=== PATIENT | female | born 1980 | race Caucasian/White ===

== ENCOUNTER 2017-04-26 16:17 | Observation (INO) ==
[2017-04-26] MEDS ORDERED: Vancomycin Oral Soln 250 MG/5 ML UDC PO STA (16:58)
--- NOTE | 2017-04-26 17:01 | Emergency Department Note ---
Disposition Clinical Impression: Clostridium difficile infection Disposition: Admitted As Inpatient Condition: Good Referrals: Maureen Isbell CNP [Primary Care Provider] - Forms: ED Satisfaction Letter Time of Disposition: 17:53 Nausea/Vomiting/Diarrhea HPI - General Chief complaint: ED Nausea/Vomiting/Diarrhea Stated complaint: C-diff, unable to fill Rx Time Seen by Provider: 04/26/17 16:37 Source: patient, family Mode of arrival: ambulatory Limitations: no limitations Nursing Notes Reviewed: Yes Vital Signs Reviewed: Yes - History of Present Illness HPI Narrative: 36-year-old with a history of cancer in currently receiving chemotherapy he developed C. difficile was hospitalized until yesterday. Patient was discharged unable to get her medications filled. Her diarrhea is now worsening. Pt Subjective Complaint: diarrhea Onset (ago): day(s) Description of Diarrhea: water Associated Abdominal Pain: Yes (Cramps) Radiation: diffuse Severity: moderate Quality: cramping Improves with: nothing Worsens with: eating Context: other (Documented C. difficile) - Related Data Home Medications Medication Instructions Recorded Confirmed Buspirone HCl [Buspar] 10 mg PO BID 11/14/16 04/23/17 Escitalopram [Lexapro] 20 mg PO DAILY 11/14/16 04/23/17 SUMAtriptan succinate [Imitrex] 25 mg PO Q2H PRN 11/14/16 04/23/17 Ranitidine HCl [Zantac] 150 mg PO BID 03/30/17 04/23/17 LORazepam [Ativan] 1 tab PO Q6H PRN 04/01/17 04/23/17 Ibuprofen [Motrin] 600 mg PO TID PRN 04/23/17 04/23/17 Previous Rx's Medication Instructions Recorded Lidocaine/Prilocaine [Emla] 1 appl TP DAILY #30 gm 03/24/17 Diphenoxylate/Atropine [Lomotil 2 each PO TID PRN 30 Days #60 04/17/17 2.5 mg/0.025 mg] tablet Metoclopramide [Reglan] 10 mg PO TID #90 tablet 04/17/17 Tramadol HCl [Ultram] 1 - 2 tab PO Q6H PRN 15 Days #30 04/22/17 tab L.acidoph,Paracasei, B.lactis 1 each PO DAILY 30 Days #30 capsule 04/25/17 [Probiotic] Vancomycin Oral Soln [Vancocin] 125 mg PO QID 12 Days #47 [facility] [place] 04/25/17 Allergies Allergy/AdvReac Type Severity Reaction Status Date / Time aspirin Allergy Anaphylaxis Verified 04/22/17 21:37 Amoxicillin AdvReac Itching Verified 04/22/17 21:37 metronidazole [From Flagyl] AdvReac Nausea/VOMI Verified 04/22/17 21:37 TING ondansetron AdvReac NAUSEA/VOMI Verified 04/22/17 21:37 [From Zofran (as TING hydrochloride)] Penicillins AdvReac Itching Verified 04/22/17 21:37 All systems ED: reviewed and negative except as stated. Constitutional: Denies: fever, chills, weakness, weight change Eyes: Denies: eye pain, eye discharge, vision change ENT ED: Denies: ear pain, throat pain, dental pain, hearing loss, epistaxis, congestion, dysphagia Cardiovascular: Denies: chest pain, palpitations, dyspnea on exertion, edema, syncope Respiratory: Denies: cough, dyspnea, wheezes, hemoptysis, stridor Gastrointestinal: Denies: abdominal pain, nausea, vomiting, diarrhea, constipation, hematemesis, melena, hematochezia Genitourinary: Denies: dysuria, frequency, hematuria, discharge Musculoskeletal: Denies: back pain, neck pain, arthralgia, myalgia Integumentary: Denies: rash, abrasion, lesions Neurological: Denies: headache, weakness, numbness, paresthesias, confusion, abnormal gait, vertigo Psychiatric: Denies: anxiety, depression, suicidal thoughts, homicidal thoughts , auditory hallucinations, visual hallucinations Endocrine: Denies: fatigue Hematological/Lymphatic: Denies: easy bleeding, easy bruising Allergic/Immunologic: Denies: facial swelling, urticaria Past Medical History - Past Medical History Medical history: Reports: asthma, cancer, migraine, other Surgical history: Reports: other Psychiatric history: Reports: anxiety, depression - Social History Smoking Status: Current some day smoker Smokeless Tobacco Status: No Alcohol use: Reports: none Drug use: Reports: none Physical Exam - General Limitations: no limitations General appearance: alert Course - Reevaluation(s) Reevaluation #1: 36-year-old who is currently being treated for breast cancer and developed a clostridial to seal diarrhea. Patient was discharged yesterday however she is not able to get her medications filled and she has had worsening symptoms since that time. We will run admit her until we get the her vacation straightened out and he of the oral vancomycin. Time: 17:54 - Consultations Consultation #1: Discussed with Omkar Mendiola. admit. Time: 18:24 Vital Signs Temperature 98.8 F 04/26/17 16:28 Pulse Rate 99 04/26/17 16:28 Respiratory Rate 18 04/26/17 16:28 Blood Pressure 128/88 04/26/17 16:28 O2 Sat by Pulse Oximetry 97 04/26/17 16:28 Temperature 98.8 F 04/26/17 16:28 Pulse Rate 99 04/26/17 16:28 Respiratory Rate 18 04/26/17 16:28 Blood Pressure 128/88 04/26/17 16:28 O2 Sat by Pulse Oximetry 97 04/26/17 16:28 Oxygen Delivery Oxygen Delivery Room Air Nausea/Vomiting/Diarrhea - Lab Data Result diagrams: 04/26/17 16:55 04/26/17 16:55 Lab Results 04/26/17 04/26/17 Range/Units 16:55 16:55 WBC 1.7 L (4.3-11.1) K/mcL RBC 3.78 L (3.82-4.97) M/mcL Hgb 11.4 L (11.5-15.4) g/dL Hct 34.2 L (35.3-44.9) % MCV 90.5 (83.0-100.0) fL MCH 30.2 (28.0-33.3) pg MCHC 33.3 (31.6-35.5) g/dL RDW 13.0 (11.5-14.5) % Plt Count 201 (140-400) K/mcL MPV 9.7 (9.4-12.4) fL Seg Neutrophils % 18.0 % Band Neutrophils % 4.0 (0-4) % Lymphocytes % 64.0 % Monocytes % 12.0 % Eosinophils % 2.0 % Neutrophils # 0.4 L (1.6-8.9) K/mcL Lymphocytes # 1.1 (0.6-4.6) K/mcL Monocytes # 0.2 (0.0-1.3) K/mcL Eosinophils # 0.0 (0.0-0.6) K/mcL Platelet Estimate Normal (Normal) Large Platelets Present A (Not Present) Sodium 137 (136-145) mEq/L Potassium 3.4 L (3.5-5.1) mEq/L Chloride 105 (98-107) mEq/L Carbon Dioxide 27 (23-29) mEq/L BUN 7 (6-20) mg/dL Creatinine 0.55 L (0.60-1.20) mg/dL Est GFR ( Amer) > 60 (> 60) Est GFR (Non-Af Amer) > 60 (> 60) BUN/Creatinine Ratio 13 (6-26) Glucose 100 (70-105) mg/dL Calculated Osmolality 282 (280-300) Calcium 9.1 (8.6-10.3) mg/dL
[2017-04-26 17:21] LABS: Hemoglobin 11.4 g/dL (11.5-15.4)
[2017-04-26 17:22] LABS: Hematocrit 34.2 % (35.3-44.9); Mean Corpuscular HGB Conc 33.3 g/dL (31.6-35.5); Mean Corpuscular Hemoglobin 30.2 pg (28.0-33.3); Mean Corpuscular Volume 90.5 fL (83.0-100.0); Mean Platelet Volume 9.7 fL (9.4-12.4); Platelet Count 201 K/mcL (140-400); Red Blood Count 3.78 M/mcL (3.82-4.97)
[2017-04-26 17:43] LABS: BUN/Creatinine Ratio 13 (6-26); Blood Urea Nitrogen 7 mg/dL (6-20); Calcium 9.1 mg/dL (8.6-10.3); Carbon Dioxide 27 mEq/L (23-29); Chloride 105 mEq/L (98-107); Glucose 100 mg/dL (70-105); Osmolality,Calculated 282 (280-300); Potassium 3.4 mEq/L (3.5-5.1); Sodium 137 mEq/L (136-145); eGFR For African Americans > 60 (> 60); eGFR For Non-African Americans > 60 (> 60)
[2017-04-26 17:57] LABS: Lymphocytes # 1.1 K/mcL (0.6-4.6); Monocytes # 0.2 K/mcL (0.0-1.3); Neutrophils # 0.4 K/mcL (1.6-8.9)
[2017-04-26 17:58] LABS: Platelet Estimate Normal (Normal)
[2017-04-26 17:59] LABS: Large Platelets Present (Not Present)
[2017-04-26] MEDS ORDERED: Naloxone 0.4 MG/ML INJ IVP PRN (20:51)
[2017-04-26] MEDS ORDERED: *HR* LORazepam 1 MG TABLET PO PRN (20:57)
[2017-04-26] MEDS ORDERED: Ibuprofen 600 MG TABLET PO PRN (20:57)
[2017-04-26] MEDS ORDERED: SUMAtriptan succinate 25 MG TABLET PO PRN (20:57)
[2017-04-26] MEDS ORDERED: traMADol 50 MG TABLET PO PRN (20:57)
--- NOTE | 2017-04-26 21:07 | Internal Med History&Physical ---
<Herson Craven - Last Filed: 04/26/17 22:34> Date of Encounter: 04/26/17 Time of Encounter: 21:05 Assessment and Plan (1) Clostridium difficile infection Current visit: Yes Status: Acute Patient admitted 04/23/17 and discharged 04/25/17 for c. diff Patient unable to get oral Vanc as an outpatient due to needing prior authorization by her insurance. Missed all doses since leaving hospital. Patient denies blood in stool at this time. Plan: restart oral vanc. patient will need Prior auth completed prior to discharge (2) Hypokalemia Current visit: Yes Status: Acute Patient K only 3.4 at this time, but due to continued diarrhea will replete with 40mg PO continue to monitor. (3) Breast cancer Current visit: Yes Status: Chronic Pt with Hx of Breast Ca currently undergoing chemotherapy. COntinue all home Nausea Medications, pain medications, psych medications Qualifiers: Breast location: central portion of breast Estrogen receptor status: positive Patient sex: female Laterality: right Qualified Code(s): C50.111 - Malignant neoplasm of central portion of right female breast; Z17.0 - Estrogen receptor positive status [ER+]; Z17.0 - Estrogen receptor positive status [ER+] Internal Medicine - H&P: HPI Chief complaint: Diarrhea Admitted From: Emergency Dept Plans for Post Hospital Care: Home History of present illness: Ms. Thrasher is a 36 year old female c PMHx of Breast CA, maigraines, anxiety, depression reports to ED after having been discharged yesterday after treatment for C. Diff c/o continued diarrhea and inability to fill her Rx for oral vancomycin as an outpatient. Patient reports that she was unable to fill her Rx for oral vancomycin because insurance required prior authorization. Patient has had continued diarrhea. Patient denies blood in stool. Patient reports nausea, abdominal tenderness. Patient denies Chest pain, SOB, fevers, chills. Patient is leukopenic secondary to chemotherapy. K 3.4 on lab work in the ED. Past Med Surg Social Fam HX - Past Medical History Medical history: asthma, cancer, migraine, other Psychiatric history: anxiety, depression - Past Surgical History Surgical History: other - Social History Smoking Status: Current some day smoker Smokeless Tobacco Status: No Alcohol use: none Drug use: none Internal Medicine - H&P: Meds Buspirone HCl [Buspar] 10 mg PO BID 11/14/16 [History] Escitalopram [Lexapro] 20 mg PO DAILY 11/14/16 [History] SUMAtriptan succinate [Imitrex] 25 mg PO Q2H PRN 11/14/16 [History] Lidocaine/Prilocaine [Emla] 1 appl TP DAILY #30 gm 03/24/17 [Rx] Ranitidine HCl [Zantac] 150 mg PO BID 03/30/17 [History] LORazepam [Ativan] 1 tab PO Q6H PRN 04/01/17 [History] Diphenoxylate/Atropine [Lomotil 2.5 mg/0.025 mg] 2 each PO TID PRN 30 Days #60 tablet 04/17/17 [Rx] Metoclopramide [Reglan] 10 mg PO TID #90 tablet 04/17/17 [Rx] Tramadol HCl [Ultram] 1 - 2 tab PO Q6H PRN 15 Days #30 tab 04/22/17 [Rx] Ibuprofen [Motrin] 600 mg PO TID PRN 04/23/17 [History] L.acidoph,Paracasei, B.lactis [Probiotic] 1 each PO DAILY 30 Days #30 capsule [Rx] Vancomycin Oral Soln [Vancocin] 125 mg PO QID 12 Days #47 [facility] 04/25/17 [Rx] 3 Allergy/AdvReac Type Severity Reaction Status Date / Time aspirin Allergy Anaphylaxis Verified 04/22/17 21:37 Amoxicillin AdvReac Itching Verified 04/22/17 21:37 metronidazole [From Flagyl] AdvReac Nausea/VOMI Verified 04/22/17 21:37 TING ondansetron AdvReac NAUSEA/VOMI Verified 04/22/17 21:37 [From Zofran (as TING hydrochloride)] Penicillins AdvReac Itching Verified 04/22/17 21:37 All Systems PM: A 14-system review of systems was performed and is negative for pertinent findings except as documented above in the HPI. - Constitutional Vitals: Temp Pulse Resp BP Pulse Ox 98.5 F 95 18 121/79 97 04/26/17 19:54 04/26/17 19:54 04/26/17 19:54 04/26/17 19:54 04/26/17 19:54 General appearance: Present: A&O X 3, no acute distress, answers questions appropriately - Head Head exam: Present: atraumatic, normocephalic - Eye Eye exam: Present: PERRL, conjuntiva pink, sclera anicteric Pupils: Present: PERRL - Neck Neck exam general surgery: Present: supple, trachea midline - Respiratory Respiratory exam: Present: CTAB. Absent: accessory muscle use, rales, rhonchi, wheezes - Cardiovascular Cardiovascular exam: Present: RRR, +S1, +S2. Absent: diastolic murmur, gallop, rubs, systolic murmur - GI/Abdominal GI/Abdominal exam: Present: normal bowel sounds, soft, tenderness (diffuse, mild ), no peritoneal signs. Absent: distended - Extremities Exam Extremities exam: Present: warm, radial pulses palpable and symmetrical. Absent : calf tenderness, cyanotic, pedal edema - Neurological Exam Neurological exam: Present: alert, oriented X3, no focal deficits. Absent: facial droop, speech deficit - Skin Skin exam: Present: dry, intact Internal Med - H&P Results - Labs CBC & Chem 7: 04/26/17 16:55 04/26/17 16:55 <Joey Lima P - Last Filed: 04/27/17 03:38> Date of Encounter: 04/27/17 Internal Medicine - H&P: HPI History of present illness: Ms. Thrasher is a 36 year old female All Systems PM: A 10-system review of systems was performed and is negative for pertinent findings except as documented above in the HPI. - Constitutional Vitals: Temp Pulse Resp BP Pulse Ox 98.4 F 76 18 123/77 97 04/27/17 00:15 04/27/17 00:15 04/27/17 00:15 04/27/17 00:15 04/27/17 00:15 Internal Med - H&P Results - Labs CBC & Chem 7: 04/26/17 16:55 04/26/17 16:55 - Attending Attestation I examined this patient and my medical decision-making was reviewed with the Resident Physician. I agree with the documented findings, disposition and treatment plan as described except to the extent set forth below. 36/female Immunocompromise status. Admitted with multiple episodes of diarrhea. Known to have a C. difficile colitis. Clinically alert and oriented. Vitals stable. We will resume the C. difficile treatment as per guidelines. Please inform oncology regarding admission more morning
[2017-04-26] MEDS: Diphenoxylate/Atropine 1 TAB TABLET PO SCH (21:57)
[2017-04-26] MEDS: Vancomycin Oral Soln 250 MG/5 ML UDC PO SCH (21:58)
[2017-04-26] MEDS: Famotidine 20 MG TABLET PO SCH (21:58)
[2017-04-27] MEDS ORDERED: *HR* LORazepam 1 MG TABLET PO PRN (03:32)
[2017-04-27] MEDS ORDERED: Diphenoxylate/Atropine 1 TAB TABLET PO PRN (03:32)
[2017-04-27 05:34] LABS: Hemoglobin 10.9 g/dL (11.5-15.4); Mean Corpuscular Volume 90.9 fL (83.0-100.0); Mean Platelet Volume 9.7 fL (9.4-12.4); Platelet Count 201 K/mcL (140-400); Red Blood Count 3.63 M/mcL (3.82-4.97); Red Cell Distribution Width 13.1 % (11.5-14.5)
[2017-04-27 06:04] LABS: BUN/Creatinine Ratio 17 (6-26); Blood Urea Nitrogen 8 mg/dL (6-20); Calcium 8.3 mg/dL (8.6-10.3); Carbon Dioxide 25 mEq/L (23-29); Chloride 109 mEq/L (98-107); Glucose 95 mg/dL (70-105); Magnesium 1.7 mg/dL (1.6-2.6); Osmolality,Calculated 288 (280-300); Phosphorous 2.9 mg/dL (2.7-4.5); Potassium 3.5 mEq/L (3.5-5.1); Sodium 140 mEq/L (136-145); eGFR For African Americans > 60 (> 60); eGFR For Non-African Americans > 60 (> 60)
[2017-04-27 06:05] LABS: Basophils # 0.1 K/mcL (0.0-0.2); Eosinophils # 0.1 K/mcL (0.0-0.6); Lymphocytes # 1.8 K/mcL (0.6-4.6); Monocytes # 0.3 K/mcL (0.0-1.3); Neutrophils # 0.2 K/mcL (1.6-8.9)
[2017-04-27 06:06] LABS: Platelet Estimate Normal (Normal); Reactive Lymphocytes Present (Not Present)
[2017-04-27] MEDS ORDERED: NON-FORMULARY MEDICATION 1 EACH EACH (Buspirone Hcl [Buspar] 10 MG) PO SCH (09:00)
[2017-04-27] MEDS: Diphenoxylate/Atropine 1 TAB TABLET PO SCH (09:14)
[2017-04-27] MEDS: Famotidine 20 MG TABLET PO SCH ×2 (09:15→21:59)
[2017-04-27] MEDS: Vancomycin Oral Soln 250 MG/5 ML UDC PO SCH ×4 (09:21→22:00)
--- NOTE | 2017-04-27 10:40 | Internal Med Progress Note ---
<Errol Panchal - Last Filed: 04/27/17 13:14> Date of Encounter: 04/27/17 Time of Encounter: 09:05 - Assessment and plan (1) Clostridium difficile infection Current Visit: Yes Status: Acute Assessment and plan: Patient admitted 04/23/17 and discharged 04/25/17 for c. diff Patient unable to get oral Vanc as an outpatient due to needing prior authorization by her insurance. Missed all doses since leaving hospital. Patient denies blood in stool at this time. Plan: Continue oral vancomycin. Plan to send Rx so that if we need to complete PA before discharge we can. (2) Hypokalemia Current Visit: Yes Status: Resolved Assessment and plan: Resolved, will replace as needed. Likely secondary to diarrhea. (3) Breast cancer Current Visit: Yes Status: Chronic Assessment and plan: Pt with Hx of Breast Ca currently undergoing chemotherapy. Continue all home Nausea Medications, pain medications, psych medications Qualifiers: Breast location: central portion of breast Estrogen receptor status: positive Patient sex: female Laterality: right Qualified Code(s): C50.111 - Malignant neoplasm of central portion of right female breast; Z17.0 - Estrogen receptor positive status [ER+]; Z17.0 - Estrogen receptor positive status [ER+] (4) DVT prophylaxis Current Visit: No Status: Acute Assessment and plan: SCDs - Subjective Interval history: Patient notes fatigue is at baseline since starting chemo. Continues to have diarrhea, denies bloody BMs. Admits diffuse abdominal tenderness. Patient notes she was readmitted due to worsening diarrhea as she was not being able to get antibiotics as outpatient. Patient is afebrile and vitals stable. - Constitutional Vitals: Temp Pulse Resp BP Pulse Ox 97.9 F 76 15 104/70 96 04/27/17 07:38 04/27/17 07:38 04/27/17 07:38 04/27/17 07:38 04/27/17 07:38 General appearance: Present: A&O X 3, no acute distress, answers questions appropriately - Head Head exam: Present: atraumatic, normocephalic - Eye Eye exam: Present: EOMI, conjuntiva pink, sclera anicteric - Neck Neck exam general surgery: Present: full ROM, supple, trachea midline - Respiratory Respiratory exam: Present: CTAB. Absent: accessory muscle use, rales, rhonchi, wheezes - Cardiovascular Cardiovascular exam: Present: RRR, +S1, +S2. Absent: diastolic murmur, gallop, rubs, systolic murmur - GI/Abdominal GI/Abdominal exam: Present: normal bowel sounds, soft, tenderness (diffuse mild tenderness to palpation.), no peritoneal signs. Absent: distended - Extremities Exam Extremities exam: Present: warm. Absent: calf tenderness, cyanotic, pedal edema - Neurological Exam Neurological exam: Present: alert, oriented X3, no focal deficits. Absent: facial droop, speech deficit - Skin Skin exam: Present: dry, intact Internal Medicine: Result - Labs CBC & Chem 7: 04/27/17 04:00 04/27/17 04:00 Consult Discharge Plan - Plan Referrals: Maureen Isbell CNP [Primary Care Provider] - <Edgar Vee - Last Filed: 04/27/17 14:30> Date of Encounter: 04/27/17 - Constitutional Vitals: Temp Pulse Resp BP Pulse Ox 98.1 F 76 15 113/75 98 04/27/17 10:46 04/27/17 10:46 04/27/17 10:46 04/27/17 10:46 04/27/17 10:46 Internal Medicine: Result - Labs CBC & Chem 7: 04/27/17 04:00 04/27/17 04:00 Labs: Short CBC 04/27/17 Range/Units 04:00 WBC 2.3 L (4.3-11.1) K/mcL Hgb 10.9 L (11.5-15.4) g/dL Hct 33.0 L (35.3-44.9) % Plt Count 201 (140-400) K/mcL Neutrophils # 0.2 L (1.6-8.9) K/mcL BMP 04/27/17 04:00 Sodium 140 Potassium 3.5 Chloride 109 H Carbon Dioxide 25 BUN 8 Creatinine 0.46 L Glucose 95 Calcium 8.3 L - Attending Attestation Acute C. difficile colitis Continue oral vancomycin IV fluids, stop Lomotil Depression, stable Migraines, stable I examined this patient and my medical decision-making was reviewed with the Resident Physician. I agree with the documented findings, disposition and treatment plan as described except to the extent set forth below.
[2017-04-28 03:58] LABS: Basophils % 1.5 %; Eosinophils % 0.4 %; Hemoglobin 10.3 g/dL (11.5-15.4); Immature Granulocytes % 0.7 % (0-4); Lymphocytes # 0.9 K/mcL (0.6-4.6); Lymphocytes % 31.5 %; Mean Corpuscular HGB Conc 32.2 g/dL (31.6-35.5); Mean Corpuscular Hemoglobin 29.8 pg (28.0-33.3); Mean Corpuscular Volume 92.5 fL (83.0-100.0); Mean Platelet Volume 9.9 fL (9.4-12.4); Monocytes % 37.4 %; Neutrophils # 0.8 K/mcL (1.6-8.9); Nucleated Red Blood Cells 1.1 /100 WBC (0); Platelet Count 206 K/mcL (140-400); Red Blood Count 3.46 M/mcL (3.82-4.97); Red Cell Distribution Width 13.2 % (11.5-14.5); Segmented Neutrophils % 28.5 %
[2017-04-28 04:05] LABS: BUN/Creatinine Ratio 17 (6-26); Blood Urea Nitrogen 8 mg/dL (6-20); Calcium 8.6 mg/dL (8.6-10.3); Carbon Dioxide 26 mEq/L (23-29); Chloride 105 mEq/L (98-107); Glucose 104 mg/dL (70-105); Osmolality,Calculated 281 (280-300); Potassium 3.9 mEq/L (3.5-5.1); Sodium 136 mEq/L (136-145); eGFR For African Americans > 60 (> 60); eGFR For Non-African Americans > 60 (> 60)
[2017-04-28 05:19] LABS: Platelet Estimate Normal (Normal)
[2017-04-28 06:57] VITALS: BP 107/71
[2017-04-28] MEDS: Famotidine 20 MG TABLET PO SCH (10:53)
[2017-04-28] MEDS: Vancomycin Oral Soln 250 MG/5 ML UDC PO SCH ×2 (10:54→15:13)
--- NOTE | 2017-04-28 11:04 | Discharge Summary ---
- NOTES TO OUTPATIENT PROVIDER Notes to Outpatient Provider: Patient was admitted for C.diff and discharged on meds, but could not obtain it, we have again dishcarged home on oral vancomycin and this time, medication was provided to patient's bedside prior to discharge Date of Encounter: 04/28/17 Time of Encounter: 11:03 - Discharge Diagnosis (1) Clostridium difficile infection Priority: Primary Status: Acute (2) Breast cancer Priority: Secondary Status: Chronic Qualifiers: Breast location: central portion of breast Estrogen receptor status: positive Patient sex: female Laterality: right Qualified Code(s): C50.111 - Malignant neoplasm of central portion of right female breast; Z17.0 - Estrogen receptor positive status [ER+]; Z17.0 - Estrogen receptor positive status [ER+] (3) Hypokalemia Priority: Primary Status: Resolved Hospital course: Ms. Thrasher is a 36 year old female Patient admitted 04/23/17 and discharged 04/25/17 for c. diff Patient unable to get oral Vanc as an outpatient due to needing prior authorization by her insurance. Missed all doses since leaving hospital. Patient denies blood in stool at this admission Seen and evaluated at the bedside with her She denies diarrhea, fever or abdominal pain Abdomen is soft and not tender We have provided vancomycin oral solution for the treatment of her cdiff to her bedside prior to discharge Follow up with PCP Discharge discussed with: patient, family, nurse, social work - Time Spent with Patient Total time spent providing and/or coordinating discharge services: Less than 30 minutes - Discharge Medications Prescriptions: Vancomycin Oral Soln [Vancocin] 125 mg PO QID 12 Days #250 ml Home Medications: Buspirone HCl [Buspar] 10 mg PO BID 11/14/16 [History] Escitalopram [Lexapro] 20 mg PO DAILY 11/14/16 [History] SUMAtriptan succinate [Imitrex] 25 mg PO Q2H PRN 11/14/16 [History] Lidocaine/Prilocaine [Emla] 1 appl TP DAILY #30 gm 03/24/17 [Rx] Ranitidine HCl [Zantac] 150 mg PO BID 03/30/17 [History] LORazepam [Ativan] 1 tab PO Q6H PRN 04/01/17 [History] Diphenoxylate/Atropine [Lomotil 2.5 mg/0.025 mg] 2 each PO TID PRN 30 Days #60 tablet 04/17/17 [Rx] Metoclopramide [Reglan] 10 mg PO TID #90 tablet 04/17/17 [Rx] Tramadol HCl [Ultram] 1 - 2 tab PO Q6H PRN 15 Days #30 tab 04/22/17 [Rx] Ibuprofen [Motrin] 600 mg PO TID PRN 04/23/17 [History] L.acidoph,Paracasei, B.lactis [Probiotic] 1 each PO DAILY 30 Days #30 capsule [Rx] Vancomycin Oral Soln [Vancocin] 125 mg PO QID 12 Days #47 [facility] 04/25/17 [Rx] Vancomycin Oral Soln [Vancocin] 125 mg PO QID 12 Days #250 ml 04/28/17 [Rx] Allergies/Adverse Reactions: 3 Allergy/AdvReac Type Severity Reaction Status Date / Time aspirin Allergy Anaphylaxis Verified 04/27/17 09:41 Amoxicillin AdvReac Itching Verified 04/27/17 09:41 metronidazole [From Flagyl] AdvReac Nausea/VOMI Verified 04/27/17 09:41 TING ondansetron AdvReac NAUSEA/VOMI Verified 04/27/17 09:41 [From Zofran (as TING hydrochloride)] Penicillins AdvReac Itching Verified 04/27/17 09:41 Date of admission: 04/26/17 18:31 Primary care physician: Maureen Isbell, Consults: 04/26/17 20:55 Consult to Nutrition [CONS] Routine Comment: WEIGHT LOSS Consulting Provider: NUTRITION Reason for Dietary Consult: PO Supplementation Consult to Pastoral Services [CONS] Routine Comment: Discharging clinician: David Bajwa Anticipated date of discharge: 04/28/17 - Constitutional Vitals: Temp Pulse Resp BP Pulse Ox 97.8 F 98 18 107/71 96 04/28/17 06:50 04/28/17 06:50 04/28/17 06:50 04/28/17 06:50 04/28/17 06:50 General appearance: Present: A&O X 3, no acute distress, answers questions appropriately - Head Head exam: Present: atraumatic, normocephalic - Eye Eye exam: Present: PERRL, conjuntiva pink, sclera anicteric Pupils: Present: PERRL - Neck Neck exam general surgery: Present: supple, trachea midline. Absent: lymphadenopathy - Respiratory Respiratory exam: Present: CTAB. Absent: accessory muscle use, rales, rhonchi, wheezes - Cardiovascular Cardiovascular exam: Present: RRR, +S1, +S2. Absent: diastolic murmur, gallop, rubs, systolic murmur - GI/Abdominal GI/Abdominal exam: Present: normal bowel sounds, soft, no peritoneal signs. Absent: distended, tenderness - Extremities Exam Extremities exam: Present: warm, radial pulses palpable and symmetrical. Absent : calf tenderness, cyanotic, pedal edema - Neurological Exam Neurological exam: Present: alert, CN II-XII intact, oriented X3, no focal deficits. Absent: pronater drift, facial droop, speech deficit - Skin Skin exam: Present: dry, intact - Patient Status Disposition: Home, Self-Care Condition: Good - Discharge Instructions Instructions: Vancomycin (By mouth), Clostridium Difficile Infection (DC) Follow Up With: Maureen Isbell CNP [Primary Care Provider] - 05/04/17 1:00 pm Jayme Mendoza MD [Partnered Physician] - 05/01/17 10:15 am - Diet and Activity Activity: resume usual activities as tolerated Diet: advance to your usual diet
== END 2017-04-28 15:34 | disposition home or self-care (01) ==
LOC: 3ANU 16:17 → EMEROO 16:17 → SUATTDRO 18:31 → 3ANU 19:22 → SUATTDRO 04-27 05:40
PROVIDERS: ADMIT Nurse Practitioner Family; ATTEND Internal Medicine

== ENCOUNTER 2018-07-17 16:47 | Observation (INO) ==
--- NOTE | 2018-07-17 17:06 | Emergency Department Note ---
Disposition Clinical Impression: Tachycardia, Atypical chest pain Disposition: Admitted As Inpatient Condition: Good Referrals: Maureen Isbell CNP [Primary Care Provider] - Time of Disposition: 21:23 Chest Pain HPI - General Stated Complaint: CP,Pain left arm Time Seen by Provider: 07/17/18 16:54 Source: patient Mode of arrival: ambulatory Limitations: no limitations Vital Signs Reviewed: Yes Nursing Notes Reviewed: Yes - History of Present Illness HPI Narrative: Ms. Thrasher is a 37 year old female with history of breast cancer on neoadjuvant chemo and anastrazole and tobacco use who presents to ED with midsternal chest pain and pressure that started around noon today and has radiated to her left arm. She also reports some shortness of breath, nausea, sweats, and generalized weakness of extremities that started around the same time. Patient does have a port to her right upper chest. Patient started having symptom when cleaning the house. Patient denies fevers, vomiting, abdominal pain, changes in bowels or bladder, or rash. - Related Data Home Medications Medication Instructions Recorded Confirmed raNITIdine HCl [Zantac] 150 mg PO PRN PRN 03/30/17 06/28/18 Ibuprofen [Motrin] 800 mg PO Q8HR PRN 12/24/17 06/28/18 Previous Rx's Medication Instructions Recorded Dicyclomine [Bentyl] 10 mg PO QID #20 capsule 09/29/17 Promethazine [Phenergan] 25 mg PO Q6HR PRN #30 tablet 10/14/17 SUMAtriptan succinate [Imitrex] 25 mg PO Q2H PRN #30 tablet 12/16/17 Escitalopram [Lexapro] 20 mg PO DAILY #30 tablet 01/06/18 HYDROcodone/Acet 5/325 mg [[place] 1 - 2 tab PO Q6H PRN 14 Days #100 01/06/18 5-325 mg] tab LORazepam [Ativan] 1 tab PO Q6H PRN 30 Days #60 tablet 01/06/18 Anastrozole [Arimidex] 1 mg PO DAILY #30 tablet 06/03/18 Oxybutynin [Ditropan] 5 mg PO BID #60 tablet 07/05/18 Allergies Allergy/AdvReac Type Severity Reaction Status Date / Time aspirin Allergy Anaphylaxis Verified 06/28/18 09:44 Amoxicillin AdvReac Itching Verified 06/28/18 09:44 metronidazole [From Flagyl] AdvReac Nausea/VOMI Verified 06/28/18 09:44 TING ondansetron AdvReac NAUSEA/VOMI Verified 06/28/18 09:44 [From Zofran (as TING hydrochloride)] Penicillins AdvReac Itching Verified 06/28/18 09:44 Review of Systems: As Per HPI Chest Pain PMH - Past Medical History Medical history: Reports: asthma, cancer, migraine, other Surgical history: Reports: other Psychiatric history: Reports: anxiety, depression FITNESS COACH history: Reports: 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 Absent: tenderness, lymphadenopathy - Chest Chest inspection: Present: normal inspection, symmetric chest wall rise. Absent: tenderness - Respiratory Respiratory exam: Present: normal lung sounds bilaterally. Absent: respiratory distress, wheezes, accessory muscle use - Cardiovascular Cardiovascular exam: Present: normal rhythm, tachycardia, normal heart sounds - Abdominal Exam Abdominal exam: Present: soft, Non-Tender, normal bowel sounds. Absent: guarding, rigidity - Extremities Exam Extremities exam: Present: full ROM, normal capillary refill, pedal edema (mild). Absent: tenderness, calf tenderness - Back Exam Back exam: Present: normal inspection, full ROM. Absent: tenderness, CVA tenderness (R), CVA tenderness (L) - Neurological Exam Neurological exam: Present: alert, oriented X3 - Psychiatric Psychiatric exam: Present: normal affect, normal mood - Skin Skin exam: Present: warm, intact, normal color, diaphoresis. Absent: rash, erythema Course Vital Signs Temperature 97.8 F 07/17/18 17:00 Pulse Rate 126 07/17/18 17:00 Respiratory Rate 16 07/17/18 17:00 Blood Pressure 135/89 07/17/18 17:00 O2 Sat by Pulse Oximetry 97 07/17/18 17:00 Temperature 97.8 F 07/17/18 17:00 Pulse Rate 108 07/17/18 20:30 Respiratory Rate 20 07/17/18 20:30 Blood Pressure 136/90 07/17/18 20:30 O2 Sat by Pulse Oximetry 100 07/17/18 20:30 Oxygen Delivery Oxygen Delivery Room Air Chest Pain - MDM Narrative Medical decision making narrative: 37 year old with history of breast cancer with chest pain and shortness of breath. Ddx including but not limited to ACS, PE, gerd, gastritis. Will get labs, ekg, cxr, and d-dimer. Administer plavix as has an asa allergy and zofran. D-dimer normal level, CBC normal. Pending additional lab results. Labs unremarkable, troponin negative. Patient continues to have persistent tachycardia. Will order CT head for headache, reglan, and benadryl for headache. IV fluids for peristent tachycadia, and UA. Spoke with admitter, admit for observation - Lab Data Lab results reviewed: Yes I reviewed the patient's lab results. Lab results narrative: Laboratory Last Values WBC 7.4 K/mcL (4.3-11.1) 07/17/18 17:48 RBC 4.48 M/mcL (3.82-4.97) 07/17/18 17:48 Hgb 13.6 g/dL (11.5-15.4) 07/17/18 17:48 Hct 40.9 % (35.3-44.9) 07/17/18 17:48 MCV 91.3 fL (83.0-100.0) 07/17/18 17:48 MCH 30.4 pg (28.0-33.3) 07/17/18 17:48 MCHC 33.3 g/dL (31.6-35.5) 07/17/18 17:48 RDW 13.7 % (11.5-14.5) 07/17/18 17:48 Plt Count 232 K/mcL (140-400) 07/17/18 17:48 MPV 9.1 fL (9.4-12.4) L 07/17/18 17:48 Immature Gran % 0.3 % (0-4) 07/17/18 17:48 Seg Neutrophils % 68.7 % 07/17/18 17:48 20.8 % 07/17/18 17:48 8.6 % 07/17/18 17:48 1.1 % 07/17/18 17:48 0.5 % 07/17/18 17:48 5.1 K/mcL (1.6-8.9) 07/17/18 17:48 1.5 K/mcL (0.6-4.6) 07/17/18 17:48 0.6 K/mcL (0.0-1.3) 07/17/18 17:48 0.1 K/mcL (0.0-0.6) 07/17/18 17:48 0.0 K/mcL (0.0-0.2) 07/17/18 17:48 PT 10.9 Seconds (9.4-12.1) 07/17/18 17:48 INR 1.0 07/17/18 17:48 APTT 42.6 Seconds (26.0-36.0) H 07/17/18 17:48 235 ng/mLFEU (0-500) 07/17/18 17:48 Sodium 144 mEq/L (136-145) 07/17/18 17:48 Potassium 3.5 mEq/L (3.5-5.1) 07/17/18 17:48 Chloride 107 mEq/L (98-107) 07/17/18 17:48 Carbon Dioxide 30 mEq/L (23-29) H 07/17/18 17:48 BUN 7 mg/dL (6-20) 07/17/18 17:48 0.71 mg/dL (0.60-1.20) 07/17/18 17:48 Est GFR ( Amer) > 60 (> 60) 07/17/18 17:48 Est GFR (Non-Af Amer) > 60 (> 60) 07/17/18 17:48 10 (6-26) 07/17/18 17:48 Glucose 80 mg/dL (70-105) 07/17/18 17:48 295 (280-300) 07/17/18 17:48 Calcium 9.8 mg/dL (8.6-10.3) 07/17/18 17:48 < 0.03 ng/mL (< 0.04) 07/17/18 17:48 Laboratory Last Values WBC 7.4 K/mcL (4.3-11.1) 07/17/18 17:48 RBC 4.48 M/mcL (3.82-4.97) 07/17/18 17:48 Hgb 13.6 g/dL (11.5-15.4) 07/17/18 17:48 Hct 40.9 % (35.3-44.9) 07/17/18 17:48 MCV 91.3 fL (83.0-100.0) 07/17/18 17:48 MCH 30.4 pg (28.0-33.3) 07/17/18 17:48 MCHC 33.3 g/dL (31.6-35.5) 07/17/18 17:48 RDW 13.7 % (11.5-14.5) 07/17/18 17:48 Plt Count 232 K/mcL (140-400) 07/17/18 17:48 MPV 9.1 fL (9.4-12.4) L 07/17/18 17:48 Immature Gran % 0.3 % (0-4) 07/17/18 17:48 Seg Neutrophils % 68.7 % 07/17/18 17:48 20.8 % 07/17/18 17:48 8.6 % 07/17/18 17:48 1.1 % 07/17/18 17:48 0.5 % 07/17/18 17:48 5.1 K/mcL (1.6-8.9) 07/17/18 17:48 1.5 K/mcL (0.6-4.6) 07/17/18 17:48 0.6 K/mcL (0.0-1.3) 07/17/18 17:48 0.1 K/mcL (0.0-0.6) 07/17/18 17:48 0.0 K/mcL (0.0-0.2) 07/17/18 17:48 PT 10.9 Seconds (9.4-12.1) 07/17/18 17:48 INR 1.0 07/17/18 17:48 APTT 42.6 Seconds (26.0-36.0) H 07/17/18 17:48 235 ng/mLFEU (0-500) 07/17/18 17:48 Sodium 144 mEq/L (136-145) 07/17/18 17:48 Potassium 3.5 mEq/L (3.5-5.1) 07/17/18 17:48 Chloride 107 mEq/L (98-107) 07/17/18 17:48 Carbon Dioxide 30 mEq/L (23-29) H 07/17/18 17:48 BUN 7 mg/dL (6-20) 07/17/18 17:48 0.71 mg/dL (0.60-1.20) 07/17/18 17:48 Est GFR ( Amer) > 60 (> 60) 07/17/18 17:48 Est GFR (Non-Af Amer) > 60 (> 60) 07/17/18 17:48 10 (6-26) 07/17/18 17:48 Glucose 80 mg/dL (70-105) 07/17/18 17:48 295 (280-300) 07/17/18 17:48 Calcium 9.8 mg/dL (8.6-10.3) 07/17/18 17:48 < 0.03 ng/mL (< 0.04) 07/17/18 17:48 Yellow (Yellow) 07/17/18 20:18 Clear (Clear) 07/17/18 20:18 8.5 pH Units (5.0-8.0) H 07/17/18 20:18 Ur Specific [place] < 1.005 (1.010-1.025) L 07/17/18 20:18 Trace mg/dL (Neg-Trace) 07/17/18 20:18 Normal mg/dL (Normal) 07/17/18 20:18 Negative mg/dL (Negative) 07/17/18 20:18 Negative (Negative) 07/17/18 20:18 Negative (Negative) 07/17/18 20:18 Negative (Negative) 07/17/18 20:18 Normal mg/dL (Normal) 07/17/18 20:18 Ur Leukocyte Esterase Negative (Negative) 07/17/18 20:18 Ur Culture Indicated? NO (NO) 07/17/18 20:18 Result diagrams: 07/17/18 17:48 07/17/18 17:48 Lab Results 07/17/18 07/17/18 07/17/18 Range/Units 17:48 17:48 17:48 WBC 7.4 (4.3-11.1) K/mcL RBC 4.48 (3.82-4.97) M/mcL Hgb 13.6 (11.5-15.4) g/dL Hct 40.9 (35.3-44.9) % MCV 91.3 (83.0-100.0) fL MCH 30.4 (28.0-33.3) pg MCHC 33.3 (31.6-35.5) g/dL RDW 13.7 (11.5-14.5) % Plt Count 232 (140-400) K/mcL MPV 9.1 L (9.4-12.4) fL Immature Gran % 0.3 (0-4) % Seg Neutrophils % 68.7 % Lymphocytes % 20.8 % Monocytes % 8.6 % Eosinophils % 1.1 % Basophils % 0.5 % Neutrophils # 5.1 (1.6-8.9) K/mcL Lymphocytes # 1.5 (0.6-4.6) K/mcL Monocytes # 0.6 (0.0-1.3) K/mcL Eosinophils # 0.1 (0.0-0.6) K/mcL Basophils # 0.0 (0.0-0.2) K/mcL PT 10.9 (9.4-12.1) Seconds INR 1.0 APTT 42.6 H (26.0-36.0) Seconds D-Dimer (0-500) ng/mLFEU Sodium 144 (136-145) mEq/L Potassium 3.5 (3.5-5.1) mEq/L Chloride 107 (98-107) mEq/L Carbon Dioxide 30 H (23-29) mEq/L BUN 7 (6-20) mg/dL Creatinine 0.71 (0.60-1.20) mg/dL Est GFR ( Amer) > 60 (> 60) Est GFR (Non-Af Amer) > 60 (> 60) BUN/Creatinine Ratio 10 (6-26) Glucose 80 (70-105) mg/dL Calculated Osmolality 295 (280-300) Calcium 9.8 (8.6-10.3) mg/dL Troponin I < 0.03 (< 0.04) ng/mL Urine Color (Yellow) Urine Clarity (Clear) Urine pH (5.0-8.0) pH Units Ur Specific [place] (1.010-1.025) Urine Protein (Neg-Trace) mg/dL Urine Glucose (UA) (Normal) mg/dL Urine Ketones (Negative) mg/dL Urine Blood (Negative) Urine Nitrite (Negative) Urine Bilirubin (Negative) Urine Urobilinogen (Normal) mg/dL Ur Leukocyte Esterase (Negative) Ur Culture Indicated? (NO) 07/17/18 07/17/18 Range/Units 17:48 20:18 WBC (4.3-11.1) K/mcL RBC (3.82-4.97) M/mcL Hgb (11.5-15.4) g/dL Hct (35.3-44.9) % MCV (83.0-100.0) fL MCH (28.0-33.3) pg MCHC (31.6-35.5) g/dL RDW (11.5-14.5) % Plt Count (140-400) K/mcL MPV (9.4-12.4) fL Immature Gran % (0-4) % Seg Neutrophils % % Lymphocytes % % Monocytes % % Eosinophils % % Basophils % % Neutrophils # (1.6-8.9) K/mcL Lymphocytes # (0.6-4.6) K/mcL Monocytes # (0.0-1.3) K/mcL Eosinophils # (0.0-0.6) K/mcL Basophils # (0.0-0.2) K/mcL PT (9.4-12.1) Seconds INR APTT (26.0-36.0) Seconds D-Dimer 235 (0-500) ng/mLFEU Sodium (136-145) mEq/L Potassium (3.5-5.1) mEq/L Chloride (98-107) mEq/L Carbon Dioxide (23-29) mEq/L BUN (6-20) mg/dL Creatinine (0.60-1.20) mg/dL Est GFR ( Amer) (> 60) Est GFR (Non-Af Amer) (> 60) BUN/Creatinine Ratio (6-26) Glucose (70-105) mg/dL Calculated Osmolality (280-300) Calcium (8.6-10.3) mg/dL Troponin I (< 0.04) ng/mL Urine Color Yellow (Yellow) Urine Clarity Clear (Clear) Urine pH 8.5 H (5.0-8.0) pH Units Ur Specific [place] < 1.005 L (1.010-1.025) Urine Protein Trace (Neg-Trace) mg/dL Urine Glucose (UA) Normal (Normal) mg/dL Urine Ketones Negative (Negative) mg/dL Urine Blood Negative (Negative) Urine Nitrite Negative (Negative) Urine Bilirubin Negative (Negative) Urine Urobilinogen Normal (Normal) mg/dL Ur Leukocyte Esterase Negative (Negative) Ur Culture Indicated? NO (NO) - Radiology Data Radiology results reviewed: Yes I reviewed the patient's radiology results. Chest X-Ray 07/17/18 17:04 IMPRESSION: No acute process. D/ / Stanley Porras MD / Stanley Porras MD Interpreting Provider: Stanley Porras MD Chest X-Ray 07/17/18 17:04 IMPRESSION: No acute process. D/ / Stanley Porras MD / Stanley Porras MD Interpreting Provider: Stanley Porras MD Head CT 07/17/18 19:36 IMPRESSION: No acute intracranial abnormality. D/ / Isidoro Cantor MD / Isidoro Cantor MD Interpreting Provider: Isidoro Cantor MD - EKG Data EKG attestation: Yes I reviewed and interpreted this EKG. EKG shows normal: sinus rhythm Rate: tachycardia Rhythm: NSR [place]/QRS: normal Interpretation: nonspecific ST-T wave changes Heart Score - Score History: Slightly Suspicious EKG: Normal Age: Less than 45 Risk Factors: 1-2 risk factors Troponin: Less than normal limit HEART Score Total: 1 Attestation Statement - Attestation Attestation: I, Wes Luke, examined this patient and my medical decision-making was reviewed with the RECOVERY ASSISTANT/PA/Advanced Practice Nurse/Resident Physician. I agree with the documented findings, disposition and treatment plan as described except to the extent set forth below. 37-year-old female presents emergency Department with concerns of acute onset chest pain and tachycardia. Patient is currently being treated for breast cancer with chemotherapy. Patient denies recent trauma, nausea, vomiting, diarrhea. Denies fever, chills, rash. No other recent changes to her medications. Laboratory evaluation was largely within normal limits in the emergency department. D-dimer was negative. Initial troponin negative. Pain was described as acute depressions in her chest that radiated to the left upper extremity. Patient was persistently tachycardic in the emergency department. She will be admitted to the hospitalist for further care and evaluation. She follows her oncologist, Dr. Mendoza at [facility].
[2018-07-17] MEDS: Ondansetron 4 MG/2 ML VIAL IVP ONE ×2 (17:36→17:46)
[2018-07-17] MEDS ORDERED: *HR* Promethazine 25 MG/ML VIAL IVP ONE (17:48)
[2018-07-17 17:59] LABS: Basophils % 0.5 %; Eosinophils # 0.1 K/mcL (0.0-0.6); Eosinophils % 1.1 %; Hematocrit 40.9 % (35.3-44.9); Hemoglobin 13.6 g/dL (11.5-15.4); Immature Granulocytes % 0.3 % (0-4); Lymphocytes # 1.5 K/mcL (0.6-4.6); Lymphocytes % 20.8 %; Mean Corpuscular HGB Conc 33.3 g/dL (31.6-35.5); Mean Corpuscular Hemoglobin 30.4 pg (28.0-33.3); Mean Corpuscular Volume 91.3 fL (83.0-100.0); Mean Platelet Volume 9.1 fL (9.4-12.4); Monocytes # 0.6 K/mcL (0.0-1.3); Monocytes % 8.6 %; Neutrophils # 5.1 K/mcL (1.6-8.9); Platelet Count 232 K/mcL (140-400); Red Blood Count 4.48 M/mcL (3.82-4.97); Red Cell Distribution Width 13.7 % (11.5-14.5); Segmented Neutrophils % 68.7 %
[2018-07-17 18:06] LABS: Prothrombin Time 10.9 Seconds (9.4-12.1)
[2018-07-17 18:09] LABS: Activated Partial Thrombo Time 42.6 Seconds (26.0-36.0)
[2018-07-17 18:21] LABS: BUN/Creatinine Ratio 10 (6-26); Blood Urea Nitrogen 7 mg/dL (6-20); Calcium 9.8 mg/dL (8.6-10.3); Carbon Dioxide 30 mEq/L (23-29); Chloride 107 mEq/L (98-107); Glucose 80 mg/dL (70-105); Osmolality,Calculated 295 (280-300); Potassium 3.5 mEq/L (3.5-5.1); Sodium 144 mEq/L (136-145); Troponin I < 0.03 ng/mL (< 0.04); eGFR For Non-African Americans > 60 (> 60)
[2018-07-17] MEDS ORDERED: Metoclopramide 10 MG/2 ML VIAL IVP ONE (19:36)
[2018-07-17] MEDS ORDERED: 0.9 % Sodium Chloride 1,000 ML IVC ONE (19:37)
[2018-07-17 20:40] LABS: Bilirubin,Urine Negative (Negative); Blood,Urine Negative (Negative); Clarity,Urine Clear (Clear); Color,Urine Yellow (Yellow); Glucose,Urine (UA) Normal (Normal); Ketones,Urine Negative (Negative); Leukocyte Esterase,Urine Negative (Negative); Nitrite,Urine Negative (Negative); PH,Urine 8.5 pH Units (5.0-8.0); Protein,Urine Trace mg/dL (Neg-Trace); Specific Gravity,Urine < 1.005 (1.010-1.025); Urobilinogen,Urine Normal (Normal)
[2018-07-18] MEDS ORDERED: Naloxone 0.4 MG/ML INJ IVP PRN (00:33)
[2018-07-18] MEDS ORDERED: Acetaminophen 325 MG TABLET PO PRN (00:33)
[2018-07-18] MEDS ORDERED: traMADol 50 MG TABLET PO PRN (00:33)
[2018-07-18] MEDS ORDERED: *HR* Promethazine 25 MG/ML VIAL IVP PRN (00:33)
[2018-07-18] MEDS ORDERED: Nitroglycerin 0.4 MG TAB.SUBL SL PRN (00:39)
--- NOTE | 2018-07-18 00:45 | Internal Med History&Physical ---
Date of Encounter: 07/17/18 Time of Encounter: 23:45 Internal Medicine - H&P: HPI Chief complaint: CP Admitted From: Emergency Dept Plans for Post Hospital Care: Home History of present illness: Ms. Thrasher is a 37 year old female w/PMH of breast cancer and currently taking oral treatments, asthma, migraines, GERD, anxiety, depression, and current tobacco use presents from the ED with chief complaint of chest pain at approximately 11:00 or 12:00 today while cleaning her house. Patient has a history of breast cancer on neoadjuvant chemotherapy and anastrozole. Patient currently has poor on right upper chest. Patient describes pain as centralized in chest with presentation as severe pressure with radiation to left arm. Associated symptoms: Nausea, diaphoresis, shortness of breath. No alleviating factors. Aggravating factor was exertion. Patient reports weakness but denies recent illness, fever, chills, vomiting, headache, changes in vision, unusual bleeding, abdominal pain, diarrhea, constipation, dizziness, lightheadedness, numbness, tingling, pre-syncope, or syncope. Past Med Surg Social Fam HX - Past Medical History Source: patient, old records reviewed Medical history: asthma, cancer, GERD, migraine, other Additional medical history: Last chemo dose 03/2018. Last radiation 01/13/2018. smoker Psychiatric history: anxiety, depression - Past Surgical History Surgical History: other Additional surgical history: tonsilectomy, addenoids removal - Social History Smoking Status: Current every day smoker Packs per day: 1/2 PPD Smokeless Tobacco Status: No Alcohol use: none Drug use: none Current living situation: Home Activity Level: Independent ambulation Recent Out of Country Travel Within the Last 8 Weeks: No Exposure or Possible Exposure to Illness During Travel: No - Family History Mother Race: Family Member Ethnicity: Non- Living Status: Still Living Hx Family Musculoskeletal Disorders: Yes (Back pain) Father Race: Family Member Ethnicity: Non- Living Status: Still Living Hx Family Cardiac Disorders: Yes (Aneurysms, RI) Brother Race: Family Member Ethnicity: Non- Living Status: Still Living Hx Family Medical Disorders: No Sister Race: Family Member Ethnicity: Non- Living Status: Still Living Hx Family Cancer: Yes (Breast mass) Internal Medicine - H&P: Meds raNITIdine HCl [Zantac] 150 mg PO PRN PRN 03/30/17 [History] Dicyclomine [Bentyl] 10 mg PO QID #20 capsule 09/29/17 [Rx] Promethazine [Phenergan] 25 mg PO Q6HR PRN #30 tablet 10/14/17 [Rx] SUMAtriptan succinate [Imitrex] 25 mg PO Q2H PRN #30 tablet 12/16/17 [Rx] Ibuprofen [Motrin] 800 mg PO Q8HR PRN 12/24/17 [History] Escitalopram [Lexapro] 20 mg PO DAILY #30 tablet 01/06/18 [Rx] HYDROcodone/Acet 5/325 mg [[place] 5-325 mg] 1 - 2 tab PO Q6H PRN 14 Days #100 tab 01/06/18 [Rx] LORazepam [Ativan] 1 tab PO Q6H PRN 30 Days #60 tablet 01/06/18 [Rx] Anastrozole [Arimidex] 1 mg PO DAILY #30 tablet 06/03/18 [Rx] Oxybutynin [Ditropan] 5 mg PO BID #60 tablet 07/05/18 [Rx] Allergy/AdvReac Type Severity Reaction Status Date / Time aspirin Allergy Anaphylaxis Verified 06/28/18 09:44 Amoxicillin AdvReac Itching Verified 06/28/18 09:44 metronidazole [From Flagyl] AdvReac Nausea/VOMI Verified 06/28/18 09:44 TING ondansetron AdvReac NAUSEA/VOMI Verified 06/28/18 09:44 [From Zofran (as TING hydrochloride)] Penicillins AdvReac Itching Verified 06/28/18 09:44 All Systems PM: A 10-system review of systems was performed and is negative for pertinent findings except as documented above in the HPI. - Constitutional Constitutional: as per HPI, weakness, no chills, no fever(s), no night sweats - EENT Eyes: no change in vision, no discharge, no pain, no photophobia Ears: no ear discharge, no ear pain, no tinnitus Nose, mouth and throat: no dysphagia, no nasal discharge, no neck pain, no sore throat - Breasts Breasts: as per HPI - Cardiovascular Cardiovascular ROS IM: as per HPI, chest pain, diaphoresis, dyspnea, dyspnea on exertion, no lightheadedness, no palpitations, no syncope - Respiratory Respiratory: as per HPI, dyspnea, dyspnea on exertion, no cough, no wheezing, no excessive phlegm production - Gastrointestinal Gastrointestinal: as per HPI, nausea, no abdominal pain, no diarrhea, no hematemesis, no hematochezia, no melena, no vomiting - Genitourinary Genitourinary: no change in urinary stream, no dysuria, no flank pain, no hematuria Menstruation: as per HPI - Musculoskeletal Musculoskeletal ROS IM: no numbness, no tingling - Integumentary Integumentary IM: no rash, no unusual bruising - Neurological Neurological ROS: as per HPI, weakness, no confusion, no convulsions, no focal weakness, no numbness, no tingling, no tremor(s) - Psychiatric Psychiatric: as per HPI, anxiety, depression - Endocrine Endocrine IM: as per HPI - Hematologic/Lymphatic Hematologic/Lymphatic: no easy bruising - Allergic/Immunologic Allergic/Immunologic: as per HPI - Constitutional Vitals: Temp Pulse Resp BP Pulse Ox 97.5 F L 90 14 122/85 98 07/17/18 22:42 07/17/18 22:42 07/17/18 22:42 07/17/18 22:42 07/17/18 22:42 General appearance: Present: cooperative, A&O X 3, pleasant, no acute distress, answers questions appropriately Exam: Patient examined at bedside. Pt. resting in bed and reports no current CP on exam. Pt. denies any other sx or complaints. VS: 97.5F temp, HR 90, RR 14, BP 122/85, SpO2 98% on RA. - Head Head exam: Present: atraumatic, normocephalic - Eye Eye exam: Present: PERRL, conjuntiva pink, sclera anicteric Pupils: Present: PERRL - ENT ENT exam: Present: normal exam - Neck Neck exam general surgery: Present: normal inspection, supple, trachea midline. Absent: lymphadenopathy - Respiratory Respiratory exam: Present: CTAB. Absent: accessory muscle use, rales, rhonchi, wheezes - Cardiovascular Cardiovascular exam: Present: RRR, +S1, +S2. Absent: diastolic murmur, gallop, rubs, systolic murmur - GI/Abdominal GI/Abdominal exam: Present: normal bowel sounds, soft, no peritoneal signs. Absent: distended, tenderness - Rectal Rectal exam: Present: deferred - Additional comments: exam deferred. - Extremities Exam Extremities exam: Present: warm, radial pulses palpable and symmetrical. Absent: calf tenderness, cyanotic, pedal edema - Back Exam Back exam: Present: normal inspection - Neurological Exam Neurological exam: Present: alert, CN II-XII intact, oriented X3, no focal deficits. Absent: pronater drift, facial droop, speech deficit - Psychiatric Psychiatric exam: Present: normal affect, normal mood - Skin Skin exam: Present: dry, intact Internal Med - H&P Results - Labs CBC & Chem 7: 07/17/18 17:48 07/17/18 17:48 Labs: Short CBC 07/17/18 Range/Units 17:48 WBC 7.4 (4.3-11.1) K/mcL Hgb 13.6 (11.5-15.4) g/dL Hct 40.9 (35.3-44.9) % Plt Count 232 (140-400) K/mcL Neutrophils # 5.1 (1.6-8.9) K/mcL BMP 07/17/18 17:48 Sodium 144 Potassium 3.5 Chloride 107 Carbon Dioxide 30 H BUN 7 Creatinine 0.71 Glucose 80 Calcium 9.8 Cardiac Enzymes 07/17/18 Range/Units 17:48 Troponin I < 0.03 (< 0.04) ng/mL Urine 07/17/18 Range/Units 20:18 Urine Color Yellow (Yellow) Urine Clarity Clear (Clear) Urine pH 8.5 H (5.0-8.0) pH Units Ur Specific [place] < 1.005 L (1.010-1.025) Urine Protein Trace (Neg-Trace) mg/dL Urine Glucose (UA) Normal (Normal) mg/dL - EKG Data EKG shows normal: sinus rhythm - EKG Data Prior EKG available for review: yes EKG comments: 07/18/18 01:33 EKG dated 07/18/18 01:08 show sinus rhythm with possible inferior myocardial infarction of indeterminate age, anterolateral myocardial infarction probably recent (Acute RI). EKG dated 07/18/18 01:09 shows sinus rhythm with sinus arrhythmia, lateral myocardial infarction probably recent, possible inferior myocardial infarction of indeterminate age (Acute RI). - Impressions ITS Impressions Chest X-Ray 07/17/18 17:04 IMPRESSION: No acute process. D/ / Stanley Porras MD / Stanley Porras MD Interpreting Provider: tSanley Porras MD Head CT 07/17/18 19:36 IMPRESSION: No acute intracranial abnormality. D/ / Isidoro Cantor MD / Isidoro Cantor MD Interpreting Provider: Isidoro Cantor MD - Diagnostic Studies Chest x-ray Additional comments: Impressions Chest X-Ray 07/17/18 17:04 IMPRESSION: No acute process. D/ / Stanley Porras MD / Stanley Porras MD Interpreting Provider: Stanley Porras MD CT scan - head Additional comments: Impressions Head CT 07/17/18 19:36 IMPRESSION: No acute intracranial abnormality. D/ / Isidoro Cantor MD / Isidoro Cantor MD Interpreting Provider: Isidoro Cantor MD - Assessment and Plan (1) Chest pain Current Visit: Yes Status: Acute Assessment and plan: Acute CP that began at approximately 11:00 or 12:00 today while cleaning her house. Patient has a history of breast cancer on neoadjuvant chemotherapy and anastrozole. Patient describes pain as centralized in chest with presentation as severe pressure with radiation to left arm. Associated symptoms: Nausea, diaphoresis, shortness of breath. No alleviating factors. Aggravating factor was exertion. Pt. is allergic to ASA, so Plavix given in ED. 80 mg Lipitor once. SL nitro PRN. Pt. had Echocardiogram done on 03/09/18 to assess for any heart damage from chemotherapy. Echo showed LVEF of 60%, normal LV chamber size and wall thickness and function, normal left ventricular diastolic function, normal right ventricular structure and function, mild tricuspid regurgitation, and no pulmonary hypertension. Initial troponin <0.03. Trending. Limited Echocardiogram ordered. NPO for nuclear pharm stress test in a.m. if troponins remain WNL. EKGs tonight show sinus rhythm with possible inferior myocardial infarction of indeterminate age, anterolateral myocardial infarction probably recent (acute RI); sinus rhythm with sinus arrhythmia, lateral myocardial infarction probably recent, possible inferior myocardial infarction of indeterminate age(acute RI). Consider Cardiology consult if troponins, Echocardiogram, and/or stress test results abnormal. Clinically speaking, pt. asymptomatic on exam w/o CP or elevated troponin. Pt. is high risk for further morbidity and complications based on current CP brought on by exertion, current breast cancer and possibl;e immunocompromised status, current weakness, and current tobacco abuse. Observation. Qualifiers: Chest pain type: other chest pain Qualified Code(s): R07.89 - Other chest pain; R07.8 - Other chest pain (2) Nausea Current Visit: Yes Status: Acute Assessment and plan: Acute nausea accompanying CP sx. Pt. is allergic to Zofran. IVP Phenergan 12.5 mg every 6 hours when necessary for nausea and vomiting. (3) SOB (shortness of breath) Current Visit: Yes Status: Acute Assessment and plan: Acute SOB accompanying CP sx. Pt. denies home O2 use. Supplemental O2 with titration and SPO2 monitoring when necessary. (4) Weakness Current Visit: Yes Status: Acute Assessment and plan: Acute weakness accompanying CP sx. Falls/safety precautions and up with assist only. Pt. instructed to use call light when needing to get out of bed. Pt. expressed understanding and agreement to plan. (5) Breast cancer Current Visit: Yes Status: Chronic Assessment and plan: Hx of chronic breast cancer. Pt. reports last chemo was in 03/2018. Continue patient's Arimidex Qualifiers: Breast location: central portion of breast Estrogen receptor status: posi tive Patient sex: female Laterality: right Qualified Code(s): C50.111 - Malignant neoplasm of central portion of right female breast; Z17.0 - Estrogen receptor positive status [ER+]; Z17.0 - Estrogen receptor positive status [ER+] (6) Hx of migraine headaches Current Visit: Yes Status: Chronic Assessment and plan: Hx of chronic migraine headaches. Continue pts. Imitrex once home medications are reconciled. (7) Asthma Current Visit: Yes Status: Chronic Assessment and plan: Hx of mild intermittent asthma. Pt. is not currently on inhaler. Monitor and add albuterol IH if needed. Qualifiers: Asthma severity: mild Asthma persistence: intermittent Asthma complication type: uncomplicated Qualified Code(s): J45.20 - Mild intermittent asthma, uncomplicated (8) Tobacco abuse Current Visit: Yes Status: Chronic Assessment and plan: Hx of chronic tobacco abuse. Pt. reports currently smoking 1/2 PPD. Denies need for nicotine patch at this time. (9) Anxiety and depression Current Visit: Yes Status: Chronic Assessment and plan: Hx of chronic anxiety and depression. Continue patient's Lexapro and Ativan once home medications are reconciled. (10) DVT prophylaxis Current Visit: Yes Status: Acute Assessment and plan: Heparin 5,000 units SQ Q8HR for DVT prophylaxis. Monitor pt. for signs of bleeding. - Time Spent With Patient Total time spent is greater than 50% in coordination of care (as documented) at patient's floor/unit and/or counseling patient: Greater than 35 minutes
[2018-07-18 01:56] LABS: Hematocrit 38.9 % (35.3-44.9); Hemoglobin 12.8 g/dL (11.5-15.4); Mean Corpuscular HGB Conc 32.9 g/dL (31.6-35.5); Mean Corpuscular Hemoglobin 30.2 pg (28.0-33.3); Mean Corpuscular Volume 91.7 fL (83.0-100.0); Mean Platelet Volume 9.6 fL (9.4-12.4); Platelet Count 214 K/mcL (140-400); Red Blood Count 4.24 M/mcL (3.82-4.97); Red Cell Distribution Width 13.8 % (11.5-14.5)
[2018-07-18 02:07] LABS: BUN/Creatinine Ratio 10 (6-26); Blood Urea Nitrogen 6 mg/dL (6-20); Calcium 8.6 mg/dL (8.6-10.3); Carbon Dioxide 26 mEq/L (23-29); Chloride 110 mEq/L (98-107); Chol/HDL Ratio 3.7 (0-4.9); Cholesterol 190 mg/dL (< 200); Glucose 100 mg/dL (70-105); HDL Cholesterol 51 mg/dL (40-59); LDL Cholesterol,Calculated 127 mg/dL (0-99); Osmolality,Calculated 290 (280-300); Potassium 3.3 mEq/L (3.5-5.1); Sodium 141 mEq/L (136-145); Triglycerides 60 mg/dL (< 150); eGFR For Non-African Americans > 60 (> 60)
[2018-07-18] MEDS: *HR* Heparin 5,000 UNIT/ML VIAL SQ SCH ×2 (05:07→13:22)
[2018-07-18] MEDS ORDERED: Regadenoson 0.4 MG/5 ML SYRINGE IVP ONE (06:25)
--- NOTE | 2018-07-18 08:03 | Discharge Summary ---
Date of Encounter: 07/18/18 Time of Encounter: 12:00 - Discharge Diagnosis (1) Chest pain Priority: Primary Status: Acute Assessment and Plan: 7 year old female w/PMH of breast cancer and currently taking oral treatments, asthma, migraines, GERD, anxiety, depression, and current tobacco use presents from the ED with chief complaint of chest pain at approximately 11:00 or 12:00 today while cleaning her house. Patient has a history of breast cancer on neoadjuvant chemotherapy and anastrozole. Patient currently has poor on right upper chest. Patient describes pain as centralized in chest with presentation as severe pressure with radiation to left arm. Associated symptoms: Nausea, diaphoresis, shortness of breath. No alleviating factors. Aggravating factor was exertion She had a stress test done to r/o CAD. Stress test came back WNL. She was discharged home in a stable condition Qualifiers: Chest pain type: other chest pain Qualified Code(s): R07.89 - Other chest pain; R07.8 - Other chest pain (2) Breast cancer Priority: Primary Status: Chronic Qualifiers: Breast location: central portion of breast Estrogen receptor status: positive Patient sex: female Laterality: right Qualified Code(s): C50.111 - Malignant neoplasm of central portion of right female breast; Z17.0 - Estrogen receptor positive status [ER+]; Z17.0 - Estrogen receptor positive status [ER+] (3) Tobacco abuse Priority: Primary Status: Chronic (4) Nausea Priority: Primary Status: Acute (5) SOB (shortness of breath) Priority: Primary Status: Acute (6) Hx of migraine headaches Priority: Primary Status: Chronic (7) DVT prophylaxis Priority: Primary Status: Acute (8) Weakness Priority: Primary Status: Acute (9) Asthma Priority: Primary Status: Chronic Qualifiers: Asthma severity: mild Asthma persistence: intermittent Asthma complication type: uncomplicated Qualified Code(s): J45.20 - Mild intermittent asthma, uncomplicated (10) Anxiety and depression Priority: Primary Status: Chronic Hospital course: Ms. Thrasher is a 37 year old female - Time Spent with Patient Total time spent providing and/or coordinating discharge services: - Discharge Medications Prescriptions: No Action raNITIdine HCl [Zantac] 150 mg PO PRN PRN PRN Reason: Heartburn Dicyclomine [Bentyl] 10 mg PO QID #20 capsule Promethazine [Phenergan] 25 mg PO Q6HR PRN #30 tablet PRN Reason: Nausea SUMAtriptan succinate [Imitrex] 25 mg PO Q2H PRN #30 tablet PRN Reason: Migraine Headache Ibuprofen [Motrin] 800 mg PO Q8HR PRN PRN Reason: Pain HYDROcodone/Acet 5/325 mg [[place] 5-325 mg] 1 - 2 tab PO Q6H PRN 14 Days #100 tab PRN Reason: Pain Escitalopram [Lexapro] 20 mg PO DAILY #30 tablet LORazepam [Ativan] 1 tab PO Q6H PRN 30 Days #60 tablet PRN Reason: Nausea Anastrozole [Arimidex] 1 mg PO DAILY #30 tablet Oxybutynin [Ditropan] 5 mg PO BID #60 tablet Home Medications: raNITIdine HCl [Zantac] 150 mg PO PRN PRN 03/30/17 [History] Dicyclomine [Bentyl] 10 mg PO QID #20 capsule 09/29/17 [Rx] Promethazine [Phenergan] 25 mg PO Q6HR PRN #30 tablet 10/14/17 [Rx] SUMAtriptan succinate [Imitrex] 25 mg PO Q2H PRN #30 tablet 12/16/17 [Rx] Ibuprofen [Motrin] 800 mg PO Q8HR PRN 12/24/17 [History] Escitalopram [Lexapro] 20 mg PO DAILY #30 tablet 01/06/18 [Rx] HYDROcodone/Acet 5/325 mg [[place] 5-325 mg] 1 - 2 tab PO Q6H PRN 14 Days #100 tab 01/06/18 [Rx] LORazepam [Ativan] 1 tab PO Q6H PRN 30 Days #60 tablet 01/06/18 [Rx] Anastrozole [Arimidex] 1 mg PO DAILY #30 tablet 06/03/18 [Rx] Oxybutynin [Ditropan] 5 mg PO BID #60 tablet 07/05/18 [Rx] Allergies/Adverse Reactions: Allergy/AdvReac Type Severity Reaction Status Date / Time aspirin Allergy Anaphylaxis Verified 06/28/18 09:44 Amoxicillin AdvReac Itching Verified 06/28/18 09:44 metronidazole [From Flagyl] AdvReac Nausea/VOMI Verified 06/28/18 09:44 TING ondansetron AdvReac NAUSEA/VOMI Verified 06/28/18 09:44 [From Zofran (as TING hydrochloride)] Penicillins AdvReac Itching Verified 06/28/18 09:44 Date of admission: 07/17/18 21:43 Primary care physician: Maureen Isbell, - Constitutional Vitals: Temp Pulse Resp BP Pulse Ox 97.7 F 70 14 136/84 99 07/18/18 02:48 07/18/18 02:48 07/18/18 02:48 07/18/18 02:48 07/18/18 02:48 General appearance: Present: cooperative, A&O X 3, pleasant, no acute distress, answers questions appropriately Exam: NAD - Head Head exam: Present: atraumatic, normocephalic - Eye Eye exam: Present: PERRL, conjuntiva pink, sclera anicteric Pupils: Present: PERRL - Neck Neck exam general surgery: Present: supple, trachea midline. Absent: lymphadenopathy - Respiratory Respiratory exam: Present: CTAB. Absent: accessory muscle use, rales, rhonchi, wheezes - Cardiovascular Cardiovascular exam: Present: RRR, +S1, +S2. Absent: diastolic murmur, gallop, rubs, systolic murmur - GI/Abdominal GI/Abdominal exam: Present: normal bowel sounds, soft, no peritoneal signs. Absent: distended, tenderness - Extremities Exam Extremities exam: Present: warm, radial pulses palpable and symmetrical. Absent: calf tenderness, cyanotic, pedal edema - Neurological Exam Neurological exam: Present: CN II-XII intact, oriented X3, no focal deficits. Absent: pronater drift, facial droop, speech deficit - Skin Skin exam: Present: dry, intact - Patient Status Disposition: Home, Self-Care Condition: Good - Discharge Instructions Follow Up With: Maureen Isbell, ROLL TABLE OPERATOR [Primary Care Provider] - Forms: ED Satisfaction Letter
[2018-07-18] MEDS: Potassium Chloride Elixir 20 MEQ/15 ML UDC PO SCH ×2 (10:35→13:21)
[2018-07-18 10:57] VITALS: BP 132/91
--- NOTE | 2018-07-18 14:40 | Electrocardiograph Report ---
[address] [place], [place] [address] Test Date: 2018-07-17 Pat Name: John Thrasher Department: EXAM10 Room: 3A22 Gender: F [employer]: : 1980 Requested By: Jasmeet Mccabe Order Number: [id number] Reading MD: Kranthi Hewitt Measurements Intervals [place] Rate: 119 P: 72 KS: 131 QRS: -21 QRSD: 88 T: 68 QT: 359 QTc: 506 Interpretive Statements Sinus tachycardia Right atrial enlargement Probable inferior infarct, old Anterolateral Q wave, probably normal for age Electronically Signed On 07-18-2018 14:38:20 EDT by Kranthi Hewitt
== END 2018-07-18 14:40 | disposition home or self-care (01) ==
LOC: 3ANU 16:47 → EMEROOARM 16:47 → 3ANU 22:02
PROVIDERS: ADMIT Internal Medicine; ATTEND Internal Medicine